=== PATIENT | female | born 1995 | race Caucasian/White ===

== ENCOUNTER 2023-06-23 10:26 | Emergency (ER) | payer MEDICAID ==
[~2023-06-23] VITALS: Ht 167.6 cm; Wt 87.5 kg
[2023-06-23 10:38] VITALS: BP 154/82; PULSE 77; RESP 20; TEMP 98; O2SAT 99
--- NOTE | 2023-06-23 10:42 | NUR ---
PT AMBULATED TO BED 2 WITHOUT ASSISTANCE
--- NOTE | 2023-06-23 11:00 | NUR ---
MD RAMOS AT BEDSIDE ASSESSING PT
--- NOTE | 2023-06-23 11:21 | NUR ---
URINE COLLECTED, DIPPED, AND SENT TO LAB.
[2023-06-23] MEDS ORDERED: ACET-10509 PO (11:46)
[2023-06-23 12:05] VITALS: BP 154/82; PULSE 77; RESP 20; TEMP 98; O2SAT 99
== END 2023-06-23 12:05 | disposition home or self-care (01) ==
LOC: MED 10:26
DX: O9A.211 Injury, poisoning and certain other consequences of external causes complicating pregnancy, first trimester (principal); S39.012A Strain of muscle, fascia and tendon of lower back, initial encounter; Z3A.11 11 weeks gestation of pregnancy; X58.XXXA Exposure to other specified factors, initial encounter; Y93.89 Activity, other specified; Y92.89 Other specified places as the place of occurrence of the external cause; Y99.8 Other external cause status
CPT/HCPCS: 81002; 81025; 99282

== ENCOUNTER 2023-11-03 11:33 | Emergency (ER) | payer MEDICAID ==
[~2023-11-03] VITALS: Ht 167.6 cm; Wt 88.9 kg
[~2023-11-03 11:33] MED LIST: ACET-10509 PO
[2023-11-03 11:48] VITALS: BP 113/59; PULSE 103; RESP 20; TEMP 98.2; O2SAT 97
[2023-11-03 14:21] LABS: FLU A ANTIGEN negative (NEGATIVE); FLU B ANTIGEN negative (NEGATIVE)
[2023-11-03] MEDS ORDERED: ACET-10509 PO (14:22)
== END 2023-11-03 14:59 | disposition home or self-care (01) ==
LOC: MED 11:33
DX: O98.513 Other viral diseases complicating pregnancy, third trimester (principal); B34.9 Viral infection, unspecified; Z20.822 Contact with and (suspected) exposure to COVID-19; Z3A.30 30 weeks gestation of pregnancy; Z79.899 Other long term (current) drug therapy
CPT/HCPCS: 99283